=== PATIENT | male | born 1970 | race Two or more races ===

== ENCOUNTER → 2024-07-30 | Day surgery (SDC) | payer BC, MEDICAID ==
[~2024-07-30] VITALS: Ht 182.9 cm; Wt 140.6 kg
[~2024-07-30] MED LIST: FENO145T27 OR; LISI20TA56 PO; METF-372 PO; OMEP-448 PO; ONDANSETRON HCL 4 MG/2 ML VIAL ONE; PROPOFOL 10 MG/ML 20 ML IV ONE; SEMA2INJ3 SC
[2024-07-30 11:18] VITALS: PULSE 85; RESP 14; TEMP 98; O2SAT 98
--- NOTE | 2024-07-30 11:18 | DVHHP2 ---
GI H&P Pre-Op Assessment Date: 07/30/24 Chief complaint: colon cancer screening, nausea HPI: per clinic note Past medical history: per clinic note Past surgical history: per clinic note Family history: per clinic note Physical exam: General: NAD, AAOX3 HEENT: PERRL, no scleral icterus, normal hearing, gums without lesions or bleeding, oropharynx clear without erythema or exudate. Neck: Supple without enlargement of the thyroid, or lymphadenopathy. Chest: Normal size and shape, no tenderness, lung patel clear to auscultation and percussion, nonlabored breathing. Heart: RRR, no murmur Abdomen: non-distended, no tenderness to palpation, +BS, no hepatosplenomegaly Extremities: no edema Neurological: CN II-XII intact, sensation intact in all extremities, 5+ strength in all extremities Skin: No rashes, No jaundice Assessment: - colon cancer screening -nausea Plan: - EGD - Colonoscopy - Risks (bleeding, infection, perforation, reaction to sedation medications and cardiopulmonary arrest) and benefit of the procedure were explained to patient. Patient agrees to undergo the procedure. EVIN CROWLEY MD Jul 30, 2024 11:18
--- NOTE | 2024-07-30 11:19 | DVHOP2 ---
Operative Report DATE OF OPERATION: 07/30/24 PROCEDURE: Upper Endoscopy. PREOPERATIVE INDICATION: The patient is a 53 -year-old male undergoing endoscopy for nausea POSTOPERATIVE DIAGNOSES: 1. Mild gastritis PROCEDURE PERFORMED BY: Ángel Grullon SCOPE: Olympus videoendoscope. ASA CLASS: 3 PREOPERATIVE MEDICATIONS: MAC with Dr Seth PROCEDURE IN DETAIL: After obtaining an informed consent, the patient was placed on left lateral decubitus position. The patient was then sedated with the above medications. A bite block was placed between his teeth. The endoscope was then passed through the oropharynx, into the esophagus, and through the stomach and pylorus up to the second and third part of the duodenum. The duodenum was normal in appearance. There was mild gastritis. Gastric biopsies were obtained. The GEJ was normal in appearance at 41 cm. The esophagus was normal in appearance. The endoscope was then withdrawn. The patient tolerated the procedure well without difficulty. COMPLICATIONS : None SPECIMENS: Gastric biopsies DISPOSITION: D/C to home PLAN: 1. Await for biopsy result ÁNGEL GRULLON MD Jul 30, 2024 11:19
--- NOTE | 2024-07-30 11:21 | DVHOP2 ---
Operative Report DATE OF OPERATION: 07/30/24 PROCEDURE: Colonoscopy. PREOPERATIVE INDICATION: The patient is a 53 -year-old male undergoing colonoscopy for colon cancer screening. POSTOPERATIVE DIAGNOSES: 1. 3 mm cecal polyp was removed with biopsy forceps. 2. 2 mm transverse colon polyp was removed with biopsy forceps. 3. Few diverticulosis. 4. Internal hemorrhoids. PROCEDURE PERFORMED BY: Ángel Grullon M.D. SCOPE: Olympus videocolonoscope. ASA CLASS: 3 PREOPERATIVE MEDICATIONS: MAC with Dr Seth PROCEDURE IN DETAIL: After obtaining an informed consent, the patient was placed on left lateral decubitus position. He was then sedated with the above medications. A rectal examination was performed that was normal. The colonoscope was then passed through the anus into the rectosigmoid and through the descending, transverse, and ascending colon up to the cecum with visualization of the appendiceal orifice, base of the cecum and the ileocecal valve. A 3 mm cecal polyp was removed with biopsy forceps. A 2 mm transverse colon polyp was removed with biopsy forceps. There was a few diverticulosis. There were internal hemorrhoids. The colonoscope was then withdrawn. The patient tolerated the procedure well without difficulty. WITHDRAWAL TIME: 12 minutes QUALITY OF THE PREP: [place] Bowel Prep score: 6 COMPLICATIONS : None SPECIMENS: Colon polyps DISPOSITION: D/C to home PLAN: 1. Repeat colonoscopy base on biopsy result ÁNGEL GRULLON MD Jul 30, 2024 11:21
--- NOTE | 2024-07-30 11:22 | DVHDS2 ---
Physician Discharge Progress N Final Diagnosis: gastritis colon polyps, diverticulosis, internal hemorrhoids Operations or Procedures: Operations or Procedures EGD with biopsy Colonoscopy with biopsy polypectomy Condition on Discharge: Good Disposition: Home Discharge Instructions: Diet: Regular Activity: No Restrictions, As Tolerated Medications: resume with previous home medications Follow Up Care: Discharge Statement: "Patient was advised to return to the ER or call 911 if any headaches, dizziness, shortness of breath, chest pain, abdominal pain, bleeding, fevers, or worsening of medical condition. Patient was counseled about treatment plan, medications, possible side effects, patientverbalized understanding. All questions were answered to the best of my ability. This discharge took greater then 30 minutes in planning, reviewing documentation, counseling the patient, and discussing with other team members." EVIN CROWLEY MD Jul 30, 2024 11:22
[2024-07-30 11:53] VITALS: BP 105/54; PULSE 81; RESP 11; O2SAT 95
== END | disposition home or self-care (01) ==
LOC: GI 09:25
PROVIDERS: ATTEND Internal Medicine Gastroenterology
DX: R11.0 Nausea (principal); D12.0 Benign neoplasm of cecum; D12.3 Benign neoplasm of transverse colon; K57.30 Diverticulosis of large intestine without perforation or abscess without bleeding; K64.8 Other hemorrhoids; K29.50 Unspecified chronic gastritis without bleeding; I10 Essential (primary) hypertension; E11.9 Type 2 diabetes mellitus without complications; E78.5 Hyperlipidemia, unspecified; Z79.84 Long term (current) use of oral hypoglycemic drugs; Z79.899 Other long term (current) drug therapy; Z80.0 Family history of malignant neoplasm of digestive organs
CPT/HCPCS: 43239; 45380; 82962; 88305; 88312; 88342; J2405; J2704; J7030